=== PATIENT | male | born 1975 | race Caucasian/White ===

== ENCOUNTER 2024-09-30 12:48 | Emergency (ER) | payer MEDICARE, OTHER ==
[~2024-09-30] VITALS: Ht 182.9 cm; Wt 89.8 kg
[2024-09-30] MEDS ORDERED: GABAPENTIN600 MG PO (13:02)
[2024-09-30] MEDS ORDERED: SODIUM CHLORIDE 0.9% 1,000 ML IV ONE (14:00)
[2024-09-30 14:15] LABS: BASOPHILS 0.7 % (0-2); EOSINOPHILS 1.4 % (0-6); HEMATOCRIT 41.8 % (35.0-50.0); HEMOGLOBIN 14.2 g/dL (12.0-18.0); LYMPHOCYTES 22.3 % (24-44); MCH 29.6 (27-36); MCHC 33.9 g/dl (30-36); MCV 87.2 fl (81-99); MONOCYTES 10.8 % (0-12); NEUTROPHILS 64.8 % (39-80); PLATELET COUNT 395 K/uL (140-440); RBC 4.79 M/ul (4.3-5.7); RDW 13.1 (10.5-15.0)
[2024-09-30 14:31] LABS: ALBUMIN 3.8 g/dL (3.4-5.0); ALBUMIN/GLOBULIN RATIO 1.09 (1.1-2.4); ANION GAP 12.1 (7-21); BILIRUBIN, TOTAL 0.2 ng/dL (0.2-1.0); BUN/CREATININE RATIO 10.81 (6.0-28.6); CALCIUM 9.1 mg/dL (8.5-10.1); CREATININE, SERUM 0.74 mg/dL (0.70-1.30); POTASSIUM 4.1 mmol/L (3.5-5.1); PROTEIN, TOTAL 7.3 g/dL (6.4-8.2)
[2024-09-30 14:31] LABS: AMPHETAMINES, URINE NEGATIVE (NEGATIVE); BARBITURATES, URINE NEGATIVE (NEGATIVE); BENZODIAZEPINE, URINE NEGATIVE (NEGATIVE); BUPRENORPHINE, URINE POSITIVE (NEGATIVE); CANNABINOID, URINE POSITIVE (NEGATIVE); COCAINE, URINE NEGATIVE (NEGATIVE); ECSTASY, URINE NEGATIVE (NEGATIVE); FENTANYL, URINE NEGATIVE (NEGATIVE); METHADONE, URINE NEGATIVE (NEGATIVE); OPIATES, URINE NEGATIVE (NEGATIVE); OXYCODONE, URINE NEGATIVE (NEGATIVE); PHENCYCLIDINE, URINE NEGATIVE (NEGATIVE)
[2024-09-30] MEDS ORDERED: HYDROCODONE/ACETA 5/325 TAB PO ONE (15:00)
[2024-09-30 15:07] VITALS: BP 128/89
== END 2024-09-30 15:09 | disposition home or self-care (01) ==
LOC: ED 12:48
PROVIDERS: Emergency Medicine
DX: R52 Pain, unspecified (principal); G89.29 Other chronic pain; M45.9 Ankylosing spondylitis of unspecified sites in spine; K50.90 Crohn's disease, unspecified, without complications
CPT/HCPCS: 36415; 80053; 80307; 85025; 99283; J7030